=== PATIENT | female | born 1955 | race African-American/Black ===

== ENCOUNTER 2022-05-21 20:14 | Emergency (ER) | payer MEDICAID ==
[~2022-05-21] VITALS: Ht 167.6 cm; Wt 68.0 kg
[2022-05-21 20:24] VITALS: BP 142/84
[2022-05-21] MEDS ORDERED: MECLIZINE 25MG TABLET PO ONE (22:00)
[2022-05-21] MEDS ORDERED: SODIUM CHLORIDE 0.9% 1,000 ML IV ONE (22:45)
[2022-05-21] MEDS ORDERED: METOCLOPRAMIDE HCL 10MG/2ML VIAL IV ONE (22:45)
[2022-05-21] MEDS ORDERED: DIPHENHYDRAMINE 50MG/ML VIAL IV ONE (22:45)
[2022-05-21 23:05] LABS: CLARITY URINE CLEAR (CLEAR); COLOR URINE YELLOW (YELLOW); KETONES URINE TRACE (NEGATIVE); LEUKOCYTE ESTERASE URINE 1+ (NEGATIVE); NITRITE URINE NEGATIVE (NEGATIVE); OCCULT BLOOD URINE NEGATIVE (NEGATIVE); PH URINE 7.5 (4.5-8.0); PROTEIN URINE TRACE (NEGATIVE); SPECIFIC GRAVITY URINE 1.022 (1.005-1.030)
[2022-05-22 00:07] LABS: BASOPHILS % 0.8 % (0.0-2.0); HEMATOCRIT. 37.3 % (36.0-48.0); HEMOGLOBIN. 12.9 g/dL (12.0-16.0); MEAN CORPUSCULAR HEMOGLOBIN 30.6 pg (28.0-32.0); MEAN CORPUSCULAR VOLUME 88.8 fL (81.0-99.0); MONOCYTES % 8.3 % (2.0-8.0); NEUTROPHILS % 49.9 % (40.0-76.0); PLATELET 147 x1000/uL (130-400); RED CELL DISTRIBUTION WIDTH 12.4 % (11.6-14.6)
[2022-05-22 00:17] LABS: CHLORIDE 106 mEq/L (98-107)
[2022-05-22] MEDS ORDERED: CEFTRIAXONE 1 G PREMIX 50 ML IV ONE (00:30)
[2022-05-22] MEDS ORDERED: NITR-87 MT (01:56)
== END 2022-05-22 11:40 | disposition home or self-care (01) ==
LOC: ER 20:14
DX: N39.0 Urinary tract infection, site not specified (principal); Z59.00 Homelessness unspecified
CPT/HCPCS: 36415; 70450; 71045; 80053; 81003; 83605; 83880; 84484; 85025; 93005; 96361; 96365; 96375; 99285; J0696; J1200; J2765; J7030; J8597